=== PATIENT | male | born 1985 | race Caucasian/White ===

== ENCOUNTER 2021-12-26 16:28 | Inpatient (IN) | payer MEDICAID ==
[~2021-12-26] VITALS: Ht 177.8 cm; Wt 81.2 kg
[2021-12-26] MEDS ORDERED: MELATONIN 3 MG TABLET PO PRN (18:45)
[2021-12-26] MEDS ORDERED: ACETAMINOPHEN 325 MG TABLET PO PRN (18:45)
[2021-12-26 20:00] VITALS: BP 124/74
[2021-12-26] MEDS: DEXAMETHASONE 4 MG TABLET PO SCH (20:58)
[2021-12-26] MEDS: OXcarbazepine 300 MG TABLET PO SCH (20:59)
[2021-12-26] MEDS: DOCUSATE SODIUM 100 MG CAPSULE PO SCH (20:59)
[2021-12-26] MEDS: DIVALPROEX SODIUM 500 MG ER TABLET PO SCH (20:59)
[2021-12-27 04:00] VITALS: BP 105/61
[2021-12-27] MEDS: ENOXAPARIN SODIUM 40 MG/0.4 ML PF SYRINGE SQ SCH (08:33)
[2021-12-27] MEDS: OXcarbazepine 300 MG TABLET PO SCH ×2 (08:34→20:20)
[2021-12-27] MEDS: DOCUSATE SODIUM 100 MG CAPSULE PO SCH ×2 (08:34→20:21)
[2021-12-27] MEDS: DEXAMETHASONE 4 MG TABLET PO SCH ×2 (08:34→20:21)
[2021-12-27 08:52] LABS: BASOPHILS % (AUTO) 0.1 % (0.0-2.0); EOSINOPHILS % (AUTO) 0.1 % (1.0-6.0); HEMATOCRIT 33.9 % (41-53); HEMOGLOBIN 11.7 g/dL (13.5-17.5); LYMPHOCYTES # (AUTO) 2.9 K/uL (1.0-4.8); LYMPHOCYTES % (AUTO) 16.9 % (22.0-44.0); MEAN CORPUSCULAR HEMOGLOBIN 29.6 pg (26.0-34.0); MEAN CORPUSCULAR HGB CONC 34.5 G/dL (31.0-37.0); MEAN CORPUSCULAR VOLUME 86 fL (80-100); MONOCYTES # (AUTO) 0.7 K/uL (0.1-1.0); MONOCYTES % (AUTO) 4.1 % (2.0-9.0); NEUTROPHILS # (AUTO) 13.4 K/uL (1.8-7.7); NEUTROPHILS % (AUTO) 78.8 % (40.0-70.0); PLATELET COUNT (AUTO) 382 K/uL (150-450); RED BLOOD CELL COUNT(AUTO) 3.95 MIL/uL (4.50-5.90); RED CELL DISTRIBUTION WIDTH 12.8 % (11.5-14.5)
[2021-12-27 09:00] LABS: ALANINE AMINOTRANSFERASE 28 U/L (12-78); ALKALINE PHOSPHATASE 57 U/L (46-116); ANION GAP 10 mmol/L (8-16); ASPARTATE AMINOTRANSFERASE 16 U/L (15-37); BILIRUBIN,TOTAL 0.7 mg/dL (0.1-1.0); CALCIUM, TOTAL 8.5 mg/dL (8.8-10.5); CARBON DIOXIDE 28 mmol/L (22-29); CHLORIDE 101 mmol/L (98-107); CREATININE 0.69 mg/dL (0.60-1.30); GLOMERULAR FILTR. RATE CALC > 60 mL/min (>60); GLUCOSE,RANDOM 125 mg/dL (70-110); POTASSIUM 3.8 mmol/L (3.5-5.1); SODIUM SERUM 139 mmol/L (136-145); TOTAL PROTEIN, SERUM 6.4 g/dL (6.4-8.2); UREA NITROGEN, BLOOD 18 mg/dL (7-18)
[2021-12-27 09:05] VITALS: BP 117/70
[2021-12-27 16:26] VITALS: BP 129/67
[2021-12-27] MEDS: DIVALPROEX SODIUM 500 MG ER TABLET PO SCH (20:20)
[2021-12-28 02:33] VITALS: BP 123/78
[2021-12-28] MEDS: DEXAMETHASONE 4 MG TABLET PO SCH (08:05)
[2021-12-28] MEDS: ENOXAPARIN SODIUM 40 MG/0.4 ML PF SYRINGE SQ SCH (08:05)
[2021-12-28] MEDS: OXcarbazepine 300 MG TABLET PO SCH ×2 (08:05→20:15)
[2021-12-28] MEDS: DOCUSATE SODIUM 100 MG CAPSULE PO SCH ×2 (08:06→20:15)
[2021-12-28 09:37] VITALS: BP 124/74
[2021-12-28] MEDS: ETHYL ALCOHOL 62% ANTISEPTIC NASAL INHALANT 0.6 ML AMPUL NASAL SCH ×2 (09:55→20:14)
[2021-12-28 19:21] VITALS: BP 127/71
[2021-12-28] MEDS: DIVALPROEX SODIUM 500 MG ER TABLET PO SCH (20:15)
[2021-12-29] VITALS: BP 112/65
[2021-12-29] MEDS: OXcarbazepine 300 MG TABLET PO SCH ×2 (08:05→20:08)
[2021-12-29] MEDS: DOCUSATE SODIUM 100 MG CAPSULE PO SCH ×2 (08:05→20:08)
[2021-12-29] MEDS: ENOXAPARIN SODIUM 40 MG/0.4 ML PF SYRINGE SQ SCH (08:05)
[2021-12-29] MEDS: ETHYL ALCOHOL 62% ANTISEPTIC NASAL INHALANT 0.6 ML AMPUL NASAL SCH ×2 (08:07→20:08)
[2021-12-29 08:36] LABS: BASOPHILS % (AUTO) 0.2 % (0.0-2.0); HEMATOCRIT 33.3 % (41-53); HEMOGLOBIN 11.4 g/dL (13.5-17.5); LYMPHOCYTES # (AUTO) 3.5 K/uL (1.0-4.8); MEAN CORPUSCULAR HEMOGLOBIN 29.8 pg (26.0-34.0); MEAN CORPUSCULAR HGB CONC 34.3 G/dL (31.0-37.0); MEAN CORPUSCULAR VOLUME 87 fL (80-100); MONOCYTES # (AUTO) 1.1 K/uL (0.1-1.0); NEUTROPHILS # (AUTO) 8.6 K/uL (1.8-7.7); NEUTROPHILS % (AUTO) 64.8 % (40.0-70.0); PLATELET COUNT (AUTO) 362 K/uL (150-450); RED BLOOD CELL COUNT(AUTO) 3.83 MIL/uL (4.50-5.90); RED CELL DISTRIBUTION WIDTH 13.3 % (11.5-14.5)
[2021-12-29 09:01] VITALS: BP 118/70
[2021-12-29] MEDS: DEXAMETHASONE 4 MG TABLET PO SCH (09:20)
[2021-12-29] MEDS ORDERED: ACET325T51 PO (10:01)
[2021-12-29] MEDS ORDERED: DOCU-119 PO (10:01)
[2021-12-29] MEDS ORDERED: DIVA-80 PO (10:01)
[2021-12-29] MEDS ORDERED: OXCA300T57 PO (10:02)
[2021-12-29 16:05] VITALS: BP 117/70
[2021-12-29] MEDS: DIVALPROEX SODIUM 500 MG ER TABLET PO SCH (20:08)
[2021-12-30 05:00] VITALS: BP 105/64
[2021-12-30] MEDS: ENOXAPARIN SODIUM 40 MG/0.4 ML PF SYRINGE SQ SCH (08:00)
[2021-12-30] MEDS: DEXAMETHASONE 4 MG TABLET PO SCH (08:01)
[2021-12-30] MEDS: OXcarbazepine 300 MG TABLET PO SCH ×2 (08:01→20:23)
[2021-12-30] MEDS: DOCUSATE SODIUM 100 MG CAPSULE PO SCH ×2 (08:01→20:23)
[2021-12-30] MEDS: ETHYL ALCOHOL 62% ANTISEPTIC NASAL INHALANT 0.6 ML AMPUL NASAL SCH ×2 (08:01→20:22)
[2021-12-30 10:25] VITALS: BP 117/69
[2021-12-30 16:30] VITALS: BP 122/62
[2021-12-30] MEDS: DIVALPROEX SODIUM 500 MG ER TABLET PO SCH (20:23)
[2021-12-31 02:25] VITALS: BP 102/53
[2021-12-31] MEDS: ETHYL ALCOHOL 62% ANTISEPTIC NASAL INHALANT 0.6 ML AMPUL NASAL SCH ×2 (07:46→20:09)
[2021-12-31] MEDS: ENOXAPARIN SODIUM 40 MG/0.4 ML PF SYRINGE SQ SCH (07:46)
[2021-12-31] MEDS: DOCUSATE SODIUM 100 MG CAPSULE PO SCH ×2 (07:46→20:07)
[2021-12-31] MEDS: OXcarbazepine 300 MG TABLET PO SCH ×2 (07:46→20:07)
[2021-12-31] MEDS: DIVALPROEX SODIUM 500 MG ER TABLET PO SCH ×2 (07:47→20:07)
[2021-12-31 09:11] VITALS: BP 117/73
[2021-12-31 15:35] VITALS: BP 117/51
[2022-01-01 04:51] VITALS: BP 103/59
[2022-01-01 08:22] VITALS: BP 116/71
[2022-01-01] MEDS: DOCUSATE SODIUM 100 MG CAPSULE PO SCH ×2 (08:45→20:05)
[2022-01-01] MEDS: ENOXAPARIN SODIUM 40 MG/0.4 ML PF SYRINGE SQ SCH (08:46)
[2022-01-01] MEDS: ETHYL ALCOHOL 62% ANTISEPTIC NASAL INHALANT 0.6 ML AMPUL NASAL SCH ×2 (08:46→20:05)
[2022-01-01] MEDS: OXcarbazepine 300 MG TABLET PO SCH ×2 (08:46→20:05)
[2022-01-01] MEDS: DIVALPROEX SODIUM 500 MG ER TABLET PO SCH (09:33)
[2022-01-01 15:53] VITALS: BP 105/62
[2022-01-02 05:40] VITALS: BP 116/62
[2022-01-02] MEDS: OXcarbazepine 300 MG TABLET PO SCH ×2 (07:50→20:13)
[2022-01-02] MEDS: DOCUSATE SODIUM 100 MG CAPSULE PO SCH ×2 (07:50→20:13)
[2022-01-02] MEDS: ETHYL ALCOHOL 62% ANTISEPTIC NASAL INHALANT 0.6 ML AMPUL NASAL SCH ×2 (07:50→20:13)
[2022-01-02] MEDS: DIVALPROEX SODIUM 500 MG ER TABLET PO SCH (07:50)
[2022-01-02] MEDS: ENOXAPARIN SODIUM 40 MG/0.4 ML PF SYRINGE SQ SCH (07:50)
[2022-01-02 08:52] VITALS: BP 139/77
[2022-01-02 10:57] LABS: ANION GAP 11 mmol/L (8-16); CALCIUM, TOTAL 8.9 mg/dL (8.8-10.5); CARBON DIOXIDE 24 mmol/L (22-29); CHLORIDE 104 mmol/L (98-107); CREATININE 0.79 mg/dL (0.60-1.30); GLOMERULAR FILTR. RATE CALC > 60 mL/min (>60); GLUCOSE,RANDOM 96 mg/dL (70-110); POTASSIUM 4.2 mmol/L (3.5-5.1); SODIUM SERUM 139 mmol/L (136-145); UREA NITROGEN, BLOOD 10 mg/dL (7-18)
[2022-01-02 13:41] VITALS: BP 130/70
[2022-01-02 17:20] VITALS: BP 120/79
[2022-01-02 23:27] VITALS: BP 122/70
[2022-01-03] MEDS: ETHYL ALCOHOL 62% ANTISEPTIC NASAL INHALANT 0.6 ML AMPUL NASAL SCH ×2 (07:55→20:01)
[2022-01-03] MEDS: ENOXAPARIN SODIUM 40 MG/0.4 ML PF SYRINGE SQ SCH (07:55)
[2022-01-03] MEDS: DOCUSATE SODIUM 100 MG CAPSULE PO SCH ×2 (07:56→20:01)
[2022-01-03] MEDS: DIVALPROEX SODIUM 500 MG ER TABLET PO SCH (07:56)
[2022-01-03] MEDS: OXcarbazepine 300 MG TABLET PO SCH ×2 (07:56→20:02)
[2022-01-03 08:01] VITALS: BP 130/68
[2022-01-03 16:10] VITALS: BP 123/76
[2022-01-03 23:00] VITALS: BP 116/59
[2022-01-04] MEDS: ETHYL ALCOHOL 62% ANTISEPTIC NASAL INHALANT 0.6 ML AMPUL NASAL SCH ×2 (07:49→19:52)
[2022-01-04] MEDS: ENOXAPARIN SODIUM 40 MG/0.4 ML PF SYRINGE SQ SCH (07:50)
[2022-01-04] MEDS: DOCUSATE SODIUM 100 MG CAPSULE PO SCH ×2 (07:50→19:52)
[2022-01-04] MEDS: DIVALPROEX SODIUM 500 MG ER TABLET PO SCH (07:51)
[2022-01-04] MEDS: OXcarbazepine 300 MG TABLET PO SCH ×2 (07:51→19:52)
[2022-01-04 08:02] VITALS: BP 119/50
[2022-01-04 16:30] VITALS: BP 123/75
[2022-01-05] VITALS: BP 111/69
[2022-01-05] MEDS: ENOXAPARIN SODIUM 40 MG/0.4 ML PF SYRINGE SQ SCH (08:04)
[2022-01-05] MEDS: OXcarbazepine 300 MG TABLET PO SCH (08:04)
[2022-01-05] MEDS: DOCUSATE SODIUM 100 MG CAPSULE PO SCH (08:04)
[2022-01-05] MEDS: ETHYL ALCOHOL 62% ANTISEPTIC NASAL INHALANT 0.6 ML AMPUL NASAL SCH (08:05)
[2022-01-05 08:07] VITALS: BP 116/76
[2022-01-05] MEDS ORDERED: DIVALPROEX SODIUM 500 MG ER TABLET PO SCH (09:00)
== END 2022-01-05 12:40 | disposition home or self-care (01) | DRG 44 ==
LOC: 2WR 17:45 → EDBD 17:45
PROVIDERS: ADMIT Physical Medicine & Rehabilitation; ATTEND Physical Medicine & Rehabilitation
DX: I62.9 Nontraumatic intracranial hemorrhage, unspecified (principal); E46 Unspecified protein-calorie malnutrition; G47.00 Insomnia, unspecified; G81.91 Hemiplegia, unspecified affecting right dominant side; F84.5 Asperger's syndrome; D64.9 Anemia, unspecified; K59.00 Constipation, unspecified; D72.829 Elevated white blood cell count, unspecified; Z79.899 Other long term (current) drug therapy; Z86.011 Personal history of benign neoplasm of the brain; Z68.25 Body mass index [BMI] 25.0-25.9, adult; G40.909 Epilepsy, unspecified, not intractable, without status epilepticus
CPT/HCPCS: 80048; 80053; 85025; 87081; 92507; 92523; 93970; 97110; 97112; 97116; 97163; 97166; 97530; 97535; 99366; J1650; J8540